=== PATIENT | female | born 1985 | race Native Hawaiian/Other Pacific Islander ===

== ENCOUNTER 2020-09-27 22:19 | Emergency (ER) | payer OTHER ==
[~2020-09-27] VITALS: Ht 170.2 cm; Wt 85.7 kg
[2020-09-27 23:18] LABS: PLATELET COUNT 301 K/uL (152-353)
[2020-09-27 23:25] LABS: POTASSIUM 3.7 mmol/L (3.6-5.2)
[2020-09-27 23:57] VITALS: BP 129/74; TEMP 98.4
== END 2020-09-27 23:57 | disposition home or self-care (01) ==
LOC: ED 22:19
PROVIDERS: Emergency Medicine Emergency Medical Services
DX: R11.2 Nausea with vomiting, unspecified (principal)
CPT/HCPCS: 36415; 80053; 81000; 82180; 82306; 82607; 83540; 83690; 84443; 85027; 99284

== ENCOUNTER 2021-12-14 07:35 | Emergency (ER) | payer OTHER ==
[~2021-12-14] VITALS: Ht 170.2 cm; Wt 85.3 kg
[2021-12-14 07:40] VITALS: TEMP 98.5
[2021-12-14 08:10] LABS: PLATELET COUNT 286 K/uL (152-353)
[2021-12-14 08:18] LABS: POTASSIUM 4.3 mmol/L (3.6-5.2)
[2021-12-14 09:13] VITALS: BP 106/56
== END 2021-12-14 09:18 | disposition home or self-care (01) ==
LOC: ED 07:35
PROVIDERS: Hospitalist
DX: K52.89 Other specified noninfective gastroenteritis and colitis (principal); M47.9 Spondylosis, unspecified; N39.0 Urinary tract infection, site not specified
CPT/HCPCS: 36415; 80053; 81000; 81025; 83690; 85027; 96374; 96375; 99284; J1885; J2405